=== PATIENT | male | born 1970 | race Caucasian/White ===

== ENCOUNTER 2017-08-04 06:30 | Day surgery (SDC) | payer OTHER ==
[2017-08-03 10:29] VITALS: BMI 27.6
[2017-08-04] MEDS ORDERED: ceFAZolin SODIUM 1 GM VIAL IVPB ONE (08:20)
[2017-08-04] MEDS ORDERED: BUPIVACAINE HCL/PF (5 MG/ML) 30 ML VIAL IJ ONE (08:58)
[2017-08-04] MEDS ORDERED: ACETAMINOPHEN 500 MG TABLET (FP) PO PRN (09:40)
[2017-08-04] MEDS ORDERED: ONDANSETRON 4 MG/2 ML VIAL IVPUSH PRN (09:40)
--- NOTE | 2017-08-04 09:40 | OP ---
Operative Note - Note: Operative Date: 08/04/17 Pre-Operative Diagnosis: left knee pain, MM pain Operation: left knee arthroscopy, partial medial meniscectomy, debridement chondroplasty Post-Operative Diagnosis: Same as Pre-op Surgeon: Jose Angel Maharaj Anesthesiologist/SERVICE LINE BUS CLEANER: Laura Xavier Anesthesia: General, Local Specimens Removed: shavings Estimated Blood Loss (mls): 0 Drains, Volume Out (mls): 0 Blood Volume Replaced (mls): 0 Fluid Volume Replaced (mls): 500 Operative Report Dictated: Yes
[2017-08-04] MEDS ORDERED: LACTATED RINGERS SOLUTION 1,000 ML IV SCH (09:45)
--- NOTE | 2017-08-04 10:27 | OP ---
DATE OF OPERATION: 08/04/2017 PREOPERATIVE DIAGNOSIS: Left knee pain and medial meniscus tear. POSTOPERATIVE DIAGNOSIS: Left knee pain and medial meniscus tear. PROCEDURE: Left knee arthroscopy, partial medial meniscectomy and debridement chondroplasty. SURGEON: Jose Angel Maharaj M.D. ASSISTANTS: None. ANESTHESIA: LMA anesthesia and intraarticular injection 20 mL 0.5% Marcaine. DRAINS: None. COMPLICATIONS: None. SPECIMEN: Arthroscopic shavings. BLOOD GIVEN: None. BLOOD LOSS: None. FLUID REPLACEMENT: 500 mL This patient is a 47-year-old male with the preoperative diagnosis of left knee pain and a partial medial meniscus tear. After understanding the potential risks, complications, alternatives and benefits of surgery, versus non-surgical treatment, the patient elected to undergo this procedure. Patient was brought to the operating room, peripheral IV placed, IV sedation given, 2 g of IV Ancef was given. LMA anesthesia was induced. Ample padding was placed in left lower extremity including the Styrofoam ring. The left lower extremity was placed into the C-clamp leg packer, prepped and draped in sterile fashion, elevated, exsanguinated with Esmarch bandage, tourniquet inflated to 275 mmHg. A superior portal was established. The lateral portal was established. A diagnostic laparoscopy was performed. Under direct visualization using a spinal needle, a medial portal was established as well. On the diagnostic arthroscopy, the patient was seen to have a small radial tear at the junction of the body and posterior horn of the medial meniscus. This was debrided with the curved shaver. The medial tibial plateau had small areas of grade 1 chondromalacia changes. The medial femoral condyle had 2 areas the size of about a quarter and the other one a nickel of grade 4 full-thickness cartilage loss. The intercondylar notch looked good. ACL looked good and had the appropriate tension. The lateral compartment looked pristine. There was no osteoarthritis and the lateral meniscus looked normal. Next, I explored the patellofemoral joint. The patient had a lot of excessive fat pad, this was removed. 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 A gentle debridement chondroplasty was performed. Photographs were taken before, during and after. The area was copiously irrigated and washed out. All excess saline and debris removed. The arthroscopy port was closed with 3-0 nylon sutures; 20 mL 0.5% Marcaine introduced into the joint. The area was then washed and dried, covered with Xeroform gauze, 4x4 and Terry bandage. The tourniquet was taken down after a total tourniquet time of 18 minutes. There were no complications during the case. The patient tolerated the procedure well and was brought to the Ambulatory recovery room in stable condition. Anderson [id number]
[2017-08-04] MEDS ORDERED: ACETAMINOPHEN 325 MG TABLET (FP) PO ONE (12:05)
[2017-08-04 12:10] VITALS: TEMP 98
[2017-08-04 13:44] VITALS: BP 138/85; PULSE 72
--- NOTE | 2017-08-05 16:12 | PATH ---
Surgical Pathology Report Patient Name: LIZZY FERNANDEZ Med. Rec. #: [id number] /Age/Gender: 1970 (Age: 47) / M Account: [id number] Location: [facility] Taken: 08/04/2017 Received: 08/04/2017 Reported: 08/05/2017 Physicians: Jose Angel Maharaj M.D. Specimen(s) Received LEFT KNEE SHAVINGS Clinical History Left knee internal derangement Final Diagnosis KNEE SHAVINGS, LEFT, ARTHROSCOPY, PARTIAL MENISCECTOMY, AND CHONDROPLASTY: FRAGMENTS OF CARTILAGE, RARE SKELETAL MUSCLE, DENSE FIBROCONNECTIVE TISSUE, ADIPOSE TISSUE, AND SYNOVIUM. Electronically Signed Gely Siegel M.D. Gross Description Received in formalin labeled "left knee shavings" are multiple fragments of white -brown cartilaginous tissue measuring 3 x 2 x 1 cm in aggregate. Assistant Import Manager sections are submitted in one cassette. HIRO/08/04/2017 lory/08/04/2017
== END 2017-08-04 14:00 | disposition home or self-care (01) ==
LOC: JASU-SURG 06:30
PROVIDERS: ATTEND Orthopaedic Surgery
PROC: 0SBD4ZZ Excision of Left Knee Joint, Percutaneous Endoscopic Approach (ICD-10-PCS; principal; 2017-08-04 08:00)
DX: S83.242A Other tear of medial meniscus, current injury, left knee, initial encounter (principal); X58.XXXA Exposure to other specified factors, initial encounter; Y93.9 Activity, unspecified; Y92.9 Unspecified place or not applicable; Y99.9 Unspecified external cause status
CPT/HCPCS: 88304-TC; 94760

== ENCOUNTER 2020-09-08 04:39 | Day surgery (SDC) | payer OTHER ==
[2020-08-28 10:33] VITALS: BMI 29.2
[2020-09-08] MEDS ORDERED: ROPIVACAINE HCL 0.5% 30ML VIAL ONE (07:17)
[2020-09-08] MEDS ORDERED: MIDAZOLAM HCL 2 MG/2 ML SINGLE DOSE VIAL ONE ×2 (07:19)
[2020-09-08] MEDS ORDERED: PROPOFOL 20 ML ONE ×3 (07:41)
[2020-09-08] MEDS ORDERED: SUCCINYLCHOLINE CHLORIDE 200 MG/10 ML SYRINGE ONE (07:41)
[2020-09-08] MEDS ORDERED: ceFAZolin SODIUM 1 GM VIAL IVPB ONE (08:10)
[2020-09-08] MEDS ORDERED: ONDANSETRON 4 MG/2 ML VIAL IVPUSH PRN (10:15)
[2020-09-08] MEDS ORDERED: oxyCODONE HCL 5 MG TABLET PO PRN ×2 (10:15)
[2020-09-08] MEDS ORDERED: LACTATED RINGERS SOLUTION 1,000 ML IV SCH (10:15)
[2020-09-08 13:31] VITALS: BP 137/82; PULSE 80; TEMP 97.8
== END 2020-09-08 13:10 | disposition home or self-care (01) ==
LOC: JASU-SURG 04:39
PROVIDERS: ATTEND Orthopaedic Surgery
PROC: 0PB94ZZ Excision of Right Clavicle, Percutaneous Endoscopic Approach (ICD-10-PCS; 2020-09-08)
PROC: 0MN10ZZ Release Right Shoulder Bursa and Ligament, Open Approach (ICD-10-PCS; 2020-09-08)
PROC: 0RNJ4ZZ Release Right Shoulder Joint, Percutaneous Endoscopic Approach (ICD-10-PCS; principal; 2020-09-08 08:00)
DX: M75.41 Impingement syndrome of right shoulder (principal); M75.101 Unspecified rotator cuff tear or rupture of right shoulder, not specified as traumatic
CPT/HCPCS: 94760